=== PATIENT | male | born 1995 | race Caucasian/White ===

== ENCOUNTER 2019-11-13 20:17 | Emergency (ER) | payer BC ==
[~2019-11-13] VITALS: Ht 175.3 cm; Wt 68.0 kg
--- NOTE | 2019-11-13 20:44 | NUR ---
Patient to ER bed 02 to gown for evaluation. Side rails up.
[2019-11-13 20:45] VITALS: BP_SYST 137
--- NOTE | 2019-11-13 20:45 | NUR ---
Pt brought by self,A&Ox4, pt presents to ER with bump on L buttocks,pt afebrile, skin pink and warm,cap refill <3, VSS.
--- NOTE | 2019-11-13 20:49 | NUR ---
Dr Wilson at bedside examining patient
[2019-11-13] MEDS ORDERED: LIDOCAINE/EPI 1% 1:100000 20 ML VIAL INJ ONE (21:15)
--- NOTE | 2019-11-13 21:31 | NUR ---
Dr Wilson at bedside for I&D
[2019-11-13] MEDS ORDERED: SULFAMETHOXAZOLE/TRIMETHOPR DS 1 TABLET PO ONE (21:45)
[2019-11-13 21:57] VITALS: BP_SYST 132
--- NOTE | 2019-11-13 21:58 | NUR ---
Patient given written and verbal discharge instructions and verbalizes understanding. ER MD discussed with patient the results and treatment provided. Patient in stable condition. ID arm band removed. Rx of Bactrim given. Patient educated on pain management and to follow up with PMD. Pain Scale 3/10 tolerable for pt. Opportunity for questions provided and answered. Medication side effect fact sheet provided.
== END 2019-11-13 21:57 | disposition home or self-care (01) ==
LOC: SED 20:17
DX: L02.31 Cutaneous abscess of buttock (principal); K21.9 Gastro-esophageal reflux disease without esophagitis
CPT/HCPCS: 99284

== ENCOUNTER 2019-11-15 11:47 | Emergency (ER) | payer BC ==
[~2019-11-15] VITALS: Ht 175.3 cm; Wt 68.0 kg
[2019-11-15 11:47] VITALS: BP_SYST 124
--- NOTE | 2019-11-15 11:47 | NUR ---
Patient triaged and placed in waiting room. VSS and patient appears in no acute distress at this time. Accompanied by SELF, awaiting available bed, and MD notified of need for MSE.
--- NOTE | 2019-11-15 14:20 | NUR ---
Patient presented to ER for wound Re-check. Patient states he was seen in [facility] ER for I&D to right buttocks x2 days ago and needs packing removed. Patient ambulatory to ER, afebrile, denies pain, denies N/V/D.
--- NOTE | 2019-11-15 14:25 | NUR ---
DR. LAGUNA EXAMINED PT IN TRIAGE ROOM.
--- NOTE | 2019-11-15 14:45 | NUR ---
Patient given written and verbal discharge instructions and verbalizes understanding. ER MD discussed with patient the results and treatment provided. Patient in stable condition. ID arm band removed. NO Rx given. Patient educated on pain management and to follow up with PMD. Pain Scale 3/10. Opportunity for questions provided and answered. Medication side effect fact sheet provided.
[2019-11-15 16:52] VITALS: BP_SYST 124
== END 2019-11-15 14:45 | disposition home or self-care (01) ==
LOC: SED 11:47
DX: Z48.00 Encounter for change or removal of nonsurgical wound dressing (principal); K21.9 Gastro-esophageal reflux disease without esophagitis
CPT/HCPCS: 99281